=== PATIENT | male | born 1990 | race American Indian/Alaskan Native ===

== ENCOUNTER 2020-02-14 17:01 | Emergency (ER) | payer SELFPAY ==
[2020-02-14 17:50] VITALS: BP 136/86
--- NOTE | 2020-02-14 19:09 | Emergency Department Report ---
ED ENT HPI - General Chief complaint: Extremity Problem,Nontraumatic Stated complaint: TOOT PAIN, BUMPS ON BODY Time Seen by Provider: 02/14/20 18:53 Source: patient Mode of arrival: Ambulatory Limitations: No Limitations - History of Present Illness Initial comments: This is a pleasant 29-year-old male presents the emergency department chief complaint of right upper dental pain, headache, and a rash on his abdomen. He states the dental pain has been on and off for the past 8 months. He reports pain now is a 9 out of 10 described as dull and throbbing and causing a right- sided headache. Patient denies any associated fever, chills, night sweats, dizziness, blurry vision, chest pain, shortness of breath or any other associated symptoms. - Related Data Previous Rx's Medication Instructions Recorded Last Taken Type Hydrocortisone 1% [Hydrocortisone 1 applicatio TP TID #1 tube 02/14/20 Unknown Rx 1% CREAM] Naproxen 500 mg PO BID #20 tablet 02/14/20 Unknown Rx Penicillin V Potassium 500 mg PO Q6HR #40 tablet 02/14/20 Unknown Rx ED Dental HPI - General Chief complaint: Extremity Problem,Nontraumatic Stated complaint: TOOT PAIN, BUMPS ON BODY Time Seen by Provider: 02/14/20 18:53 Source: patient Mode of arrival: Ambulatory Limitations: No Limitations - Related Data Previous Rx's Medication Instructions Recorded Last Taken Type Hydrocortisone 1% [Hydrocortisone 1 applicatio TP TID #1 tube 02/14/20 Unknown Rx 1% CREAM] Naproxen 500 mg PO BID #20 tablet 02/14/20 Unknown Rx Penicillin V Potassium 500 mg PO Q6HR #40 tablet 02/14/20 Unknown Rx ED Review of Systems ROS: Stated complaint: TOOT PAIN, BUMPS ON BODY Other details as noted in HPI Comment: All other systems reviewed and negative Constitutional: denies: chills, fever Eyes: denies: eye pain, eye discharge, vision change ENT: as per HPI, dental pain. denies: ear pain, throat pain Respiratory: denies: cough, shortness of breath, wheezing Cardiovascular: denies: chest pain, palpitations Endocrine: no symptoms reported Gastrointestinal: denies: abdominal pain, nausea, diarrhea Genitourinary: denies: urgency, dysuria Musculoskeletal: denies: back pain, joint swelling, arthralgia Skin: as per HPI, rash. denies: lesions Neurological: denies: headache, weakness, paresthesias Psychiatric: denies: anxiety, depression Hematological/Lymphatic: denies: easy bleeding, easy bruising ED Past Medical Hx - Past Medical History Previous Medical History?: No - Surgical History Past Surgical History?: No - Medications Home Medications: Home Medications Medication Instructions Recorded Confirmed Last Taken Type Hydrocortisone 1% [Hydrocortisone 1 applicatio TP TID #1 tube 02/14/20 Unknown Rx 1% CREAM] Naproxen 500 mg PO BID #20 tablet 02/14/20 Unknown Rx Penicillin V Potassium 500 mg PO Q6HR #40 tablet 02/14/20 Unknown Rx ED Physical Exam - General Limitations: No Limitations General appearance: alert, in no apparent distress - Head Head exam: Present: atraumatic, normocephalic - Eye Eye exam: Present: normal appearance, PERRL Pupils: Present: normal accommodation - ENT ENT exam: Present: normal exam, mucous membranes moist - Neck Neck exam: Present: normal inspection, full ROM. Absent: tenderness, meningismus - Respiratory Respiratory exam: Present: normal lung sounds bilaterally. Absent: respiratory distress, wheezes, rales, rhonchi, stridor - Cardiovascular Cardiovascular Exam: Present: regular rate, normal rhythm, normal heart sounds. Absent: systolic murmur, diastolic murmur, rubs, gallop - GI/Abdominal GI/Abdominal exam: Present: soft, normal bowel sounds. Absent: distended, tenderness, guarding, rebound, rigid - Rectal Rectal exam: Present: deferred - Extremities Exam Extremities exam: Present: normal inspection, full ROM. Absent: tenderness - Back Exam Back exam: Present: normal inspection, full ROM. Absent: tenderness, CVA tenderness (R), CVA tenderness (L) - Neurological Exam Neurological exam: Present: alert, oriented X3, normal gait - Psychiatric Psychiatric exam: Present: normal affect, normal mood - Skin Skin exam: Present: warm, dry, intact, normal color. Absent: rash ED Course Vital Signs 02/14/20 17:47 Temperature 98.4 F Pulse Rate 79 Respiratory 18 Rate Blood Pressure 136/86 O2 Sat by Pulse 99 Oximetry ED Medical Decision Making - Medical Decision Making Patient nontoxic in no acute distress. Vitals are stable. No obvious dental abscess but there is some gingival enlargement concerned there may be an early dental infection. No trismus, no peritonsillar bulging, retropharyngeal bulging or television. There was some erythematous papules to the anterior abdomen. No edema, no tenderness palpation, these delfino when touched. Skin is otherwise clean and dry and intact. Recommend outpatient follow-up primary care doctor return the emerge department change worsening symptoms. We will treat the patient with antibiotics, pain medication and hydrocortisone ointment for the suspected allergic contact dermatitis. - Differential Diagnosis Allergic contact dermatitis, pityriasis rosea, dental abscess, dental infec Critical care attestation.: If time is entered above; I have spent that time in minutes in the direct care of this critically ill patient, excluding procedure time. ED Disposition Clinical Impression: Pain due to dental caries, Dental infection, Rash and nonspecific skin eruption Disposition: - TO HOME OR SELFCARE Is pt being admited?: No Condition: Stable Instructions: Viral Exanthem (ED), Toothache (ED) Prescriptions: Hydrocortisone 1% [Hydrocortisone 1% CREAM] 1 applicatio TP TID #1 tube Naproxen 500 mg PO BID #20 tablet Penicillin V Potassium 500 mg PO Q6HR #40 tablet Referrals: [facility] [Provider Group] - 3-5 Days Time of Disposition: 19:08
== END 2020-02-14 19:20 | disposition home or self-care (01) ==
LOC: ED 17:01
DX: K02.9 Dental caries, unspecified (principal); R21 Rash and other nonspecific skin eruption; Z79.899 Other long term (current) drug therapy
CPT/HCPCS: 99282